=== PATIENT | male | born 1985 | race Caucasian/White ===

== ENCOUNTER 2016-09-18 11:00 | Emergency (ER) | payer MEDICAID ==
[2016-09-18 11:06] VITALS: TEMP 97.7
--- NOTE | 2016-09-18 11:56 | EDPHY ---
H & P Stated Complaint: "twisted left knee" last night. Previous injury to it. Time Seen by Provider: 09/18/16 11:16 HPI/ROS: CHIEF COMPLAINT: Left knee injury HISTORY OF PRESENT ILLNESS: Patient presents to the ED with an acute injury to his left knee. The patient reportedly twisted his knee yesterday while playing a yard game. The patient has a history of a chronic ACL injury which has not been treated with surgery. The patient is scheduled to see a physical therapist this week. The patient presents secondary to his acute injury. The patient denies additional co injury. REVIEW OF SYSTEMS: A comprehensive 10 point review of systems is otherwise negative aside from elements mentioned in the history of present illness. Source: Patient Exam Limitations: No limitations - Personal History Current Tetanus Diphtheria and Acellular Pertussis (TDAP): Yes Tetanus Vaccine Date: 2009 - Medical/Surgical History Hx Asthma: No Hx Chronic Respiratory Disease: No Hx Diabetes: No Hx Cardiac Disease: No Hx Renal Disease: No Hx Cirrhosis: No Hx Alcoholism: No Hx HIV/AIDS: No Hx Splenectomy or Spleen Trauma: No Other PMH: major depressive disorder, anxiety disorder, borderline personality disorder, chronic L knee pain from injury several years ago, osteomylitis - Social History Smoking Status: Current every day smoker - Physical Exam Exam: General Appearance: Alert, no distress Back: No midline T/L/S pain Extremities: Tenderness to palpation along the lateral aspect of the left knee , slight laxity with anterior stress Neurological: A&Ox3, normal motor function, normal sensory exam Constitutional: Initial Vital Signs Temperature (C) 36.5 C 09/18/16 11:02 Heart Rate 91 09/18/16 11:02 Respiratory Rate 16 09/18/16 11:02 Blood Pressure 151/94 H 09/18/16 11:02 O2 Sat (%) 97 09/18/16 11:02 O2 Delivery Mode Room Air Allergies/Adverse Reactions: pregabalin [From Lyrica] Allergy (Intermediate, Verified 06/17/15 07:07) Hives promethazine HCl [From Phenergan] Allergy (Mild, Verified 06/17/15 07:07) Flushing gabapentin Allergy (Verified 06/17/15 07:07) Home Medications: Medication Instructions Recorded Trileptal 04/24/16 LORazepam 09/18/16 Remeron 09/18/16 Medical Decision Making - Diagnostics Imaging: Left knee x-ray: Negative for acute fracture. ED Course/Re-evaluation: The patient presents to emergency department with an acute left knee injury. X- ray demonstrates no evidence of a fracture. The patient does have a chronic knee injury. The patient will be referred to our on-call orthopedic surgeon. The patient is advised to take NSAIDs. Departure - Departure Disposition: Home, Routine, Self-Care Clinical Impression: Knee sprain Condition: Good Instructions: Knee Sprain (ED) Additional Instructions: 1. Take Ibuprofen or Motrin 600 mg by mouth three times a day. 2. Please follow up with the orthopedic surgeon you have been referred to for further evaluation of your chronic knee injury Referrals: Tom Scruggs DO [Primary Care Provider] - As per Instructions Justice Watts MD [Medical Doctor] - As per Instructions
[2016-09-18 12:16] VITALS: BP 149/76; PULSE 88; RESP 14; O2SAT 95
== END 2016-09-18 12:14 | disposition home or self-care (01) ==
DX: S83.92XA Sprain of unspecified site of left knee, initial encounter (principal); F17.200 Nicotine dependence, unspecified, uncomplicated; X58.XXXA Exposure to other specified factors, initial encounter; Y93.89 Activity, other specified

== ENCOUNTER 2017-04-29 10:26 | Emergency (ER) | payer MEDICAID ==
[2017-04-29 10:31] VITALS: BP 110/62; PULSE 88; RESP 18; TEMP 97.7; O2SAT 98
--- NOTE | 2017-04-29 12:07 | EDPHY ---
H & P Time Seen by Provider: 04/29/17 11:20 HPI/ROS: CHIEF COMPLAINT: Vomiting, heroin withdrawal HISTORY OF PRESENT ILLNESS: 31-year-old male presents to the emergency department with multiple episodes of vomiting. His last use of heroin was 2 days ago. He has been using heroin over last 4 months and wants to get off of this drug. Patient has vomited multiple times. He is unable to keep anything down. He has had diarrhea as well. He has diffuse abdominal cramping. No chest pain or difficulty breathing. He has had subjective fevers and sweats. No recent travel. No headache. REVIEW OF SYSTEMS: Constitutional: No fever, no chills. Eyes: No double or blurry vision. ENT: No sore throat. Respiratory: No cough, no shortness of breath. Cardiac: No chest pain. Gastrointestinal: Vomiting, diarrhea. Diffuse abdominal pain Genitourinary: No dysuria. Musculoskeletal: No neck or back pain. Skin: No rashes. Neurological: No headache. Past Medical/Surgical History: Substance abuse Social History: Single Smoking Status: Current every day smoker Physical Exam: General Appearance: Alert, moderate distress. Very anxious. Eyes: Pupils equal and round. Extraocular motions are all intact. ENT: Mouth: Mucous membranes dry. Respiratory: No wheezing, rhonchi, or rales, lungs are clear to auscultation. Cardiovascular: Regular rate and rhythm. Gastrointestinal: Abdomen is soft and nontender, no masses, no rebound or guarding, bowel sounds normal. No CVA tenderness bilaterally. Neurological: Alert and oriented x 3, cranial nerves II through XII grossly intact Skin: Warm and dry, no rashes. Musculoskeletal: Nontender to palpate along the cervical, thoracic or lumbar spine. Neck is supple. Extremities: Full range of motion and no peripheral edema. Psychiatric: Patient is oriented X 3, there is no agitation. Constitutional: Initial Vital Signs Temperature (C) 36.5 C 04/29/17 10:29 Heart Rate 88 04/29/17 10:29 Respiratory Rate 18 04/29/17 10:29 Blood Pressure 110/62 04/29/17 10:29 O2 Sat (%) 98 04/29/17 10:29 O2 Delivery Mode Room Air Allergies/Adverse Reactions: pregabalin [From Lyrica] Allergy (Intermediate, Verified 06/17/15 07:07) Hives promethazine HCl [From Phenergan] Allergy (Mild, Verified 06/17/15 07:07) Flushing gabapentin Allergy (Verified 06/17/15 07:07) Home Medications: Medication Instructions Recorded Trileptal 04/24/16 Remeron 09/18/16 LORazepam [Ativan] 1 mg PO Q6-8PRN PRN #10 tab 04/29/17 Medical Decision Making ED Course/Re-evaluation: Laboratory studies were drawn and laboratory studies were unremarkable. Patient received IV normal saline as well as 2 mg of IV Ativan and Zofran. He was starting to feel better. He did not have any recurring vomiting in the emergency department. The patient was instructed to have close follow-up with primary care provider. He was also given information regarding the addiction recovery Center. Patient does not have an acute abdomen. I do not think CT imaging is indicated. Differential Diagnosis: Including but not limited to substance abuse, withdrawal, dehydration, electrolyte abnormality - Data Points Laboratory Results: Laboratory Results 04/29/17 12:10 04/29/17 12:10 04/29/17 04/29/17 12:10 12:10 WBC 9.14 10^3/uL 10^3/uL (3.80-9.50) RBC 4.39 10^6/uL L 10^6/uL (4.40-6.38) Hgb 14.2 g/dL g/dL (13.7-17.5) Hct 38.2 % L % (40.0-51.0) MCV 87.0 fL fL (81.5-99.8) MCH 32.3 pg pg (27.9-34.1) MCHC 37.2 g/dL H g/dL (32.4-36.7) RDW 12.4 % % (11.5-15.2) Plt Count 181 10^3/uL 10^3/uL (150-400) MPV 10.2 fL fL (8.7-11.7) Neut % (Auto) 78.1 % H % (39.3-74.2) Lymph % (Auto) 12.8 % L % (15.0-45.0) [place] % (Auto) 8.0 % % (4.5-13.0) Eos % (Auto) 0.3 % L % (0.6-7.6) Baso % (Auto) 0.4 % % (0.3-1.7) Nucleat RBC Rel Count 0.0 % % (0.0-0.2) Absolute Neuts (auto) 7.13 10^3/uL H 10^3/uL (1.70-6.50) Absolute Lymphs (auto) 1.17 10^3/uL 10^3/uL (1.00-3.00) Absolute Monos (auto) 0.73 10^3/uL 10^3/uL (0.30-0.80) Absolute Eos (auto) 0.03 10^3/uL 10^3/uL (0.03-0.40) Absolute Basos (auto) 0.04 10^3/uL 10^3/uL (0.02-0.10) Absolute Nucleated RBC 0.00 10^3/uL 10^3/uL (0-0.01) Immature Gran % 0.4 % % (0.0-1.1) Immature Gran # 0.04 10^3/uL 10^3/uL (0.00-0.10) Sodium 142 mEq/L mEq/L (134-144) Potassium 3.7 mEq/L mEq/L (3.5-5.2) Chloride 106 mEq/L mEq/L (97-110) Carbon Dioxide 24 mEq/l mEq/l (22-31) Anion Gap 12 mEq/L mEq/L (8-16) BUN 6 mg/dL L mg/dL (7-23) Creatinine 0.6 mg/dL L mg/dL (0.7-1.3) Estimated GFR > 60 Glucose 115 mg/dL H mg/dL (70-100) Calcium 9.2 mg/dL mg/dL (8.5-10.4) Medications Given: Discontinued Medications Sodium Chloride (Ns) 1,000 mls @ 0 mls/hr IV ONCE ONE PRN Reason: Wide Open Stop: 04/29/17 12:10 Last Admin: 04/29/17 12:17 Dose: 1,000 mls Lorazepam (Ativan Injection) 1 mg IVP EDNOW ONE Stop: 04/29/17 12:10 Last Admin: 04/29/17 12:18 Dose: 1 mg Lorazepam (Ativan Injection) 1 mg IVP EDNOW ONE Stop: 04/29/17 12:47 Last Admin: 04/29/17 12:51 Dose: 1 mg Ondansetron HCl (Zofran) 4 mg IVP EDNOW ONE Stop: 04/29/17 12:10 Last Admin: 04/29/17 12:18 Dose: 4 mg Departure - Departure Disposition: Home, Routine, Self-Care Clinical Impression: Substance abuse, Withdrawal from opioids Condition: Good Instructions: Acute Nausea and Vomiting (ED) Additional Instructions: Clear liquids and slowly advance diet as tolerated. Ativan as needed for symptoms of withdrawal. Referrals: Tom Scruggs DO [Primary Care Provider] - As per Instructions [facility] [Outside] - As per Instructions Prescriptions: LORazepam [Ativan] 1 mg PO Q6-8PRN PRN #10 tab PRN Reason: P.r.n. anxiety
[2017-04-29] MEDS ORDERED: NS 1,000 ML IV ONE (12:09)
[2017-04-29] MEDS ORDERED: LORazepam 2 MG/ML INJ IVP ONE ×3 (12:09→13:48)
[2017-04-29] MEDS ORDERED: ONDANSETRON 4 MG/2 ML VIAL IVP ONE (12:09)
[2017-04-29 12:19] LABS: % IMMATURE GRANULYOCYTES 0.4 % (0.0-1.1); ABSOLUTE IMMATURE GRANULOCYTES 0.04 10^3/uL (0.00-0.10); ADD DIFF? NO; ADD MORPH? NO; ADD SCAN? NO; ATYPICAL LYMPHOCYTE FLAG 0 (0-99); FRAGMENT RBC FLAG 0 (0-99); HEMATOCRIT 38.2 % (40.0-51.0); HEMOGLOBIN 14.2 g/dL (13.7-17.5); LEFT SHIFT FLG 0 (0-99); LIPEMIA HEMOLYSIS FLAG 90 (0-99); MEAN CELL HEMOGLOBIN 32.3 pg (27.9-34.1); MEAN CELL HEMOGLOBIN CONCENTR. 37.2 g/dL (32.4-36.7); MEAN PLATELET VOLUME 10.2 fL (8.7-11.7); PLATELET CLUMPS FLAG 40 (0-99); PLATELET COUNT 181 10^3/uL (150-400); RED BLOOD CELL COUNT 4.39 10^6/uL (4.40-6.38); RED CELL DISTRIBUTION WIDTH 12.4 % (11.5-15.2)
[2017-04-29 12:58] LABS: ANION GAP 12 mEq/L (8-16); CALCIUM 9.2 mg/dL (8.5-10.4); CARBON DIOXIDE 24 mEq/l (22-31); CHLORIDE 106 mEq/L (97-110); CREATININE 0.6 mg/dL (0.7-1.3); GLOMERULAR FILTRATION RATE > 60; GLUCOSE 115 mg/dL (70-100); POTASSIUM 3.7 mEq/L (3.5-5.2); SODIUM 142 mEq/L (134-144)
--- NOTE | 2017-04-29 14:20 | ASDISCHSUM ---
Discharge Information Plan Status:Substance Abuse Referrals Medically Cleared to Leave: Discharge Date:04/29/2017 02:01 PM CM D/C Disposition:Home, Routine, Self-Care ADT D/C Disposition:Home, Routine, Self-Care Projected Discharge Date:04/29/2017 02:01 PM Transportation at D/C:None or Unknown Discharge Delay Reason: Follow-Up Date:04/29/2017 02:01 PM Discharge Slot: Final Diagnosis: Placement Information Patient Contact Information Contact Name:MIKIE Relationship:Mother Address:[address] [place] [address] Work Phone: City:[place] Alternate Phone: State/Zip Code:[place] [address] Email: Financial Information Financial Class: Primary Plan Desc:[employer]ICA[employer] 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 Emergency dept visits in Answers: 1 last 6 months Score: 1 Date Signed: 04/29/2017 02:19 PM Electronically Signed By:Felicia Land RN Intervention Information
[2017-05-01] MEDS ORDERED: DIAZEPAM 5 MG TAB ONE ×2 (13:58→14:09)
== END 2017-04-29 14:01 | disposition home or self-care (01) ==
DX: F11.23 Opioid dependence with withdrawal (principal); F17.200 Nicotine dependence, unspecified, uncomplicated
CPT/HCPCS: 96374; J2060; J2405

== ENCOUNTER 2017-05-01 00:11 | Emergency (ER) | payer MEDICAID ==
[2017-05-01 01:11] LABS: % IMMATURE GRANULYOCYTES 0.5 % (0.0-1.1); ABSOLUTE IMMATURE GRANULOCYTES 0.05 10^3/uL (0.00-0.10); ADD DIFF? NO; ADD MORPH? NO; ADD SCAN? NO; ATYPICAL LYMPHOCYTE FLAG 10 (0-99); FRAGMENT RBC FLAG 0 (0-99); HEMATOCRIT 36.2 % (40.0-51.0); HEMOGLOBIN 13.1 g/dL (13.7-17.5); LEFT SHIFT FLG 0 (0-99); LIPEMIA HEMOLYSIS FLAG 90 (0-99); MEAN CELL HEMOGLOBIN 31.5 pg (27.9-34.1); MEAN CELL HEMOGLOBIN CONCENTR. 36.2 g/dL (32.4-36.7); MEAN PLATELET VOLUME 10.1 fL (8.7-11.7); PLATELET CLUMPS FLAG 0 (0-99); PLATELET COUNT 213 10^3/uL (150-400); RED BLOOD CELL COUNT 4.16 10^6/uL (4.40-6.38); RED CELL DISTRIBUTION WIDTH 12.6 % (11.5-15.2)
[2017-05-01 01:23] LABS: ANION GAP 15 mEq/L (8-16); CALCIUM 8.5 mg/dL (8.5-10.4); CARBON DIOXIDE 23 mEq/l (22-31); CHLORIDE 109 mEq/L (97-110); CREATININE 0.6 mg/dL (0.7-1.3); ETHANOL SERUM 106 mg/dL (0-10); GLOMERULAR FILTRATION RATE > 60; GLUCOSE 86 mg/dL (70-100); POTASSIUM 3.5 mEq/L (3.5-5.2); SODIUM 147 mEq/L (134-144)
[2017-05-01] MEDS ORDERED: LORazepam 1 MG TAB PO ONE (01:24)
--- NOTE | 2017-05-01 01:30 | EDPHY ---
H & P Stated Complaint: SI-here earlier today Source: Patient Exam Limitations: No limitations - Personal History Current Tetanus Diphtheria and Acellular Pertussis (TDAP): Yes Tetanus Vaccine Date: 2009 - Medical/Surgical History Hx Asthma: No Hx Chronic Respiratory Disease: No Hx Diabetes: No Hx Cardiac Disease: No Hx Renal Disease: No Hx Cirrhosis: No Hx Alcoholism: No Hx HIV/AIDS: No Hx Splenectomy or Spleen Trauma: No Other PMH: major depressive disorder, anxiety disorder, borderline personality disorder, chronic L knee pain from injury several years ago, osteomylitis - Social History Smoking Status: Current every day smoker Time Seen by Provider: 05/01/17 01:12 HPI/ROS: HPI The patient presents with suicidal ideation in the setting of opiate withdrawal. He has had symptoms for the last several days after stopping using heroin 4 days ago. He says he is exhausted unable to eat, sleep, is at the end of his rope. And because of all this, he is feeling suicidal. 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 He thinks all these things are contributing to his symptoms. He went to the crisis [facility] and was placed on an M1 hold. He was seen in the emergency department 2 days ago for opiate withdrawal and given Ativan with improvement in his symptoms.. REVIEW OF SYSTEMS Constitutional: No fever, no chills. Eyes: No discharge. ENT: No sore throat. Cardiovascular: No chest pain, no palpitations. Respiratory: No cough, no shortness of breath. Gastrointestinal: No abdominal pain, no vomiting. Genitourinary: No hematuria. Musculoskeletal: No back pain. Skin: No rashes. Neurological: No headache. PMHx: Mood disorder Soc Hx: Housed, used alcohol recently, family lives locally PHYSICAL General Appearance: Alert, anxious Eyes: Pupils equal and round no pallor or injection ENT, Mouth: Mucous membranes moist Respiratory: There are no retractions, lungs are clear to auscultation Cardiovascular: Regular rate and rhythm Gastrointestinal: Abdomen is soft and non-tender, no masses, bowel sounds normal Neurological: A&O, moves all extremities Skin: Warm and dry, no rashes Musculoskeletal: Neck is supple non tender Extremities: symmetrical, full range of motion Psychiatric: Patient is oriented X 3, there is no agitation (Riguzzi,Antonia) Constitutional: Initial Vital Signs Temperature (C) 36.6 C 05/01/17 00:15 Heart Rate 74 05/01/17 00:15 Respiratory Rate 16 05/01/17 00:15 Blood Pressure 123/77 H 05/01/17 00:15 O2 Sat (%) 96 05/01/17 00:15 O2 Delivery Mode Room Air Allergies/Adverse Reactions: pregabalin [From Lyrica] Allergy (Intermediate, Verified 05/01/17 00:15) Hives promethazine HCl [From Phenergan] Allergy (Mild, Verified 05/01/17 00:15) Flushing gabapentin Allergy (Verified 05/01/17 00:15) Home Medications: Medication Instructions Recorded Trileptal 04/24/16 Remeron 09/18/16 LORazepam [Ativan] 1 mg PO Q6-8PRN PRN #10 tab 04/29/17 Medical Decision Making Differential Diagnosis: 31-year-old male, brought in by ambulance on mental health hold from the crisis Center for suicidal ideation in the setting of opiate withdrawal. Differential diagnosis includes depression with suicidal ideation, symptomatic opiate withdrawal, less likely benzodiazepine withdrawal. In the emergency department, patient's labs were checked and were relatively unremarkable. He was deemed medically clear. Psychiatric Services are looking for placement for him. He had some difficulties with restlessness and insomnia , anxiety throughout the night. He was medicated with Ativan 2 mg, Zyprexa, mirtazapine. There is some concern for benzodiazepine seeking behavior, he has a prior history of benzodiazepine addiction so I am being cautious with the use of this medication. At 7:00 a.m., I anticipate the case will be signed out to the oncoming provider Dr. Montelongo pending placement. (Antonia Mccall) I assumed care of this patient at 7:[address] Mccall. Throughout the day he has had persistent symptoms of opiate withdrawal. With restless legs, abdominal pain, some anxiety, general dysphoria. He has received benzodiazepines, Valium and clonidine for the symptoms. At 3:30 p.m. he is much more comfortable, not agitated and resting. When questioned throughout the day he continues to expressed suicidal ideation, primarily related to his drug abuse. His care will be transferred to Dr. Shaheed Randhawa at 4:00 p.m.. Placement pending. (Jenna Montelongo) Other Provider: 5:20 p.m. patient accepted to [facility] by Dr. Cars. Transfer paperwork completed. (Shaheed Randhawa) - Data Points Laboratory Results: Laboratory Results 05/01/17 00:55 05/01/17 00:55 Medications Given: Discontinued Medications Acetaminophen (Tylenol) 1,000 mg PO EDNOW ONE Stop: 05/01/17 02:33 Last Admin: 05/01/17 02:53 Dose: 1,000 mg Chlordiazepoxide HCl (Librium) 25 mg PO EDNOW ONE Stop: 05/01/17 06:48 Last Admin: 05/01/17 06:49 Dose: 25 mg Clonidine (Catapres) 0.2 mg PO EDNOW ONE Stop: 05/01/17 01:26 Last Admin: 05/01/17 01:39 Dose: 0.2 mg Clonidine (Catapres) 0.2 mg PO EDNOW ONE Stop: 05/01/17 10:06 Last Admin: 05/01/17 10:13 Dose: 0.2 mg Diazepam (Valium) 10 mg PO EDNOW ONE Stop: 05/01/17 08:33 Last Admin: 05/01/17 08:36 Dose: 10 mg Diazepam (Valium) 5 mg PO EDNOW ONE Stop: 05/01/17 12:54 Last Admin: 05/01/17 13:59 Dose: 5 mg Diazepam (Valium) 5 mg PO EDNOW ONE Stop: 05/01/17 14:09 Last Admin: 05/01/17 14:10 Dose: 5 mg Ibuprofen (Motrin) 600 mg PO EDNOW ONE Stop: 05/01/17 08:03 Last Admin: 05/01/17 08:05 Dose: 600 mg Lorazepam (Ativan) 2 mg PO EDNOW ONE Stop: 05/01/17 01:25 Last Admin: 05/01/17 01:39 Dose: 2 mg Mirtazapine (Remeron) 15 mg PO EDNOW ONE Stop: 05/01/17 02:33 Last Admin: 05/01/17 02:53 Dose: 15 mg Olanzapine (Olanzapine) 10 mg PO ONCE ONE Stop: 05/01/17 02:22 Last Admin: 05/01/17 02:27 Dose: Not Given Olanzapine (Olanzapine) 10 mg PO ONCE ONE Stop: 05/01/17 04:48 Last Admin: 05/01/17 04:55 Dose: 10 mg Ondansetron HCl (Zofran Odt) 4 mg PO EDNOW ONE Stop: 05/01/17 08:03 Last Admin: 05/01/17 08:05 Dose: 4 mg Departure - Departure Disposition: Other Psych, Not Jose Armando Clinical Impression: Opiate withdrawal, Suicidal ideation Condition: Fair Referrals: Tom Scruggs DO [Primary Care Provider] - As per Instructions
[2017-05-01] MEDS ORDERED: LORazepam 1 MG TAB ONE (01:42)
[2017-05-01] MEDS ORDERED: OLANZapine 5 MG TAB PO ONE ×2 (02:21→04:47)
[2017-05-01] MEDS ORDERED: MIRTAZAPINE 15 MG TAB PO ONE (02:32)
[2017-05-01] MEDS ORDERED: ACETAMINOPHEN 500 MG TAB PO ONE (02:32)
[2017-05-01] MEDS ORDERED: chlordiazePOXIDE 25 MG CAP PO ONE (06:47)
[2017-05-01 07:59] VITALS: RESP 14; O2SAT 96
[2017-05-01] MEDS ORDERED: IBUPROFEN 600 MG TAB PO ONE ×3 (08:02→18:19)
[2017-05-01] MEDS ORDERED: ONDANSETRON DISINTEGRATING 4 MG TAB PO ONE (08:02)
[2017-05-01] MEDS ORDERED: DIAZEPAM 5 MG TAB PO ONE ×4 (08:32→18:11)
[2017-05-01 18:35] VITALS: BP 149/87; PULSE 60; TEMP 98.1
== END 2017-05-01 20:18 ==
LOC: EDUNIT# → EEVIPCON 00:11
DX: R45.851 Suicidal ideations (principal); F11.23 Opioid dependence with withdrawal; F17.200 Nicotine dependence, unspecified, uncomplicated
CPT/HCPCS: 80305; G0480

== ENCOUNTER 2017-06-14 07:41 | Emergency (ER) | payer MEDICAID ==
[2017-06-14] MEDS ORDERED: TERBUTALINE SULFATE 5 MG TAB PO ONE (08:07)
[2017-06-14] MEDS ORDERED: HYDROmorphONE/DILAUDID 1 MG/ML INJ IVP ONE (08:10)
[2017-06-14] MEDS ORDERED: NS 1,000 ML IV ONE (08:10)
[2017-06-14] MEDS ORDERED: ONDANSETRON 4 MG/2 ML VIAL IVP ONE (08:10)
--- NOTE | 2017-06-14 08:14 | EDPHY ---
H & P Stated Complaint: Priapism Time Seen by Provider: 06/14/17 07:56 HPI/ROS: CHIEF COMPLAINT: Priapism HISTORY OF PRESENT ILLNESS: Patient is a 31-year-old man with history of depression on Remeron, Lamictal and Ativan who presents emergency department complaining of an erection since 3:00 a.m.. He states that it is fluctuated to some degree but is painful. He has had these before. Sometimes it resolves with Benadryl or irrigation but another time he had to go to the OR and have a "stent "placed. He states that that was 2 years ago in [place]. He had been on Zyprexa at the time but has since switched to his other medications. He is not followed up with a urologist since then. He denies any trauma. No bleeding. He has not tried to urinate. No fever. No abdominal pain or testicle pain. No illicit drug use. REVIEW OF SYSTEMS: Constitutional: denies: chills, fever, recent illness, recent injury EENTM: denies: blurred vision, double vision, nose congestion Respiratory: denies: cough, shortness of breath Cardiac: denies: chest pain, irregular heart rate, lightheadedness, palpitations Gastrointestinal/Abdominal: denies: abdominal pain, diarrhea, nausea, vomiting, blood streaked stools Genitourinary: See HPI Musculoskeletal: denies: joint pain, muscle pain Skin: denies: lesions, rash, jaundice, bruising Neurological: denies: headache, numbness, paresthesia, tingling, dizziness, weakness Hematologic/Lymphatic: denies: blood clots, easy bleeding, easy bruising Immunologic/allergic: denies: HIV/AIDS, transplant EXAM: GENERAL: Well-appearing, well-nourished and in no acute distress. HEAD: Atraumatic, normocephalic. EYES: Pupils equal round and reactive to light, extraocular movements intact, sclera anicteric, conjunctiva are normal. ENT: TMs normal, nares patent, oropharynx clear without exudates. Moist mucous membranes. NECK: Normal range of motion, supple without lymphadenopathy or JVD. LUNGS: Breath sounds clear to auscultation bilaterally and equal. No wheezes rales or rhonchi. HEART: Regular rate and rhythm without murmurs, rubs or gallops. ABDOMEN: Soft, nontender, normoactive bowel sounds. No guarding, no rebound. No masses appreciated. : Erect penis, no erythema. Nontender. No discharge. Is previous scar on right glands BACK: No CVA tenderness, no spinal tenderness, step-offs or deformities EXTREMITIES: Normal range of motion, no pitting or edema. No clubbing or cyanosis. NEUROLOGICAL: Cranial nerves II through XII grossly intact. Normal speech, normal gait. 5/5 strength, normal movement in all extremities, normal sensation PSYCH: Normal mood, normal affect. SKIN: Warm, dry, normal turgor, no visible rashes or lesions. Source: Patient, Family Exam Limitations: No limitations - Personal History Current Tetanus Diphtheria and Acellular Pertussis (TDAP): Yes Tetanus Vaccine Date: 2009 - Medical/Surgical History Hx Asthma: No Hx Chronic Respiratory Disease: No Hx Diabetes: No Hx Cardiac Disease: No Hx Renal Disease: No Hx Cirrhosis: No Hx Alcoholism: No Hx HIV/AIDS: No Hx Splenectomy or Spleen Trauma: No Other PMH: major depressive disorder, anxiety disorder, borderline personality disorder, chronic L knee pain from injury several years ago, osteomylitis. Priapism. - Family History Significant Family History: No pertinent family hx - Social History Smoking Status: Current every day smoker Alcohol Use: Sober Drug Use: None Constitutional: Initial Vital Signs Temperature (C) 36.6 C 06/14/17 07:42 Heart Rate 80 06/14/17 07:42 Respiratory Rate 18 06/14/17 07:42 Blood Pressure 114/63 06/14/17 07:42 O2 Sat (%) 100 06/14/17 07:42 O2 Delivery Mode Room Air Allergies/Adverse Reactions: pregabalin [From Lyrica] Allergy (Intermediate, Verified 05/01/17 00:15) Hives promethazine HCl [From Phenergan] Allergy (Mild, Verified 05/01/17 00:15) Flushing gabapentin Allergy (Verified 05/01/17 00:15) morphine Allergy (Verified 05/01/17 20:17) Home Medications: Medication Instructions Recorded Trileptal 04/24/16 Remeron 09/18/16 LORazepam [Ativan] 1 mg PO Q6-8PRN PRN #10 tab 04/29/17 Medical Decision Making ED Course/Re-evaluation: 9:00 a.m. I entered the room to attempt to inject with phenylephrine however the patient would like to see if the terbutaline will work 1st. He just received about 10 min ago. 9:30 a.m. the patient's priapism has detumesced with terbutaline only. He is concerned about the stent on his penis and states that over the last few days he has been more sexually active and seems to be having delayed detumscence. I will consult Urology Dr. Barrera Alexander. 10:00 a.m. I discussed the case with Dr. Sears. He will see the patient in clinic. He states that the patient likely does not have a stent but a shunt that was used to drain previous priapism episodes. No remaining foreign body or plastic stent. The patient is relieved to hear this. The patient's penis has completely normalized. We also discussed follow up with his psychiatrist to re-evaluate his medications that may be causing priapism. He has an appoint with his psychiatrist tomorrow. He is happy with this plan and is eager to go home. Differential Diagnosis: Partial list of the Differential diagnosis considered include but were not limited to; priapism, trauma and although unlikely based on the history and physical exam, I also considered infection, obstruction. I discussed these differential diagnoses and the plan with the patient as well as the usual and expected course. The patient understands that the diagnosis is provisional and that in medicine we are not always correct and that further workup is often warranted. Usual and customary warnings were given. All of the patient's questions were answered. The patient was instructed to return to the emergency department should the symptoms at all worsen or return, otherwise to followup with the physician as we discussed. - Data Points Laboratory Results: Laboratory Results 06/14/17 08:10 06/14/17 08:10 06/14/17 06/14/17 06/14/17 08:10 08:10 08:10 WBC 3.95 10^3/uL 10^3/uL (3.80-9.50) RBC 4.55 10^6/uL 10^6/uL (4.40-6.38) Hgb 14.3 g/dL g/dL (13.7-17.5) Hct 40.3 % % (40.0-51.0) MCV 88.6 fL fL (81.5-99.8) MCH 31.4 pg pg (27.9-34.1) MCHC 35.5 g/dL g/dL (32.4-36.7) RDW 12.6 % % (11.5-15.2) Plt Count 134 10^3/uL L 10^3/uL (150-400) MPV 10.1 fL fL (8.7-11.7) Neut % (Auto) 48.0 % % (39.3-74.2) Lymph % (Auto) 40.8 % % (15.0-45.0) [place] % (Auto) 7.8 % % (4.5-13.0) Eos % (Auto) 2.3 % % (0.6-7.6) Baso % (Auto) 0.8 % % (0.3-1.7) Nucleat RBC Rel Count 0.0 % % (0.0-0.2) Absolute Neuts (auto) 1.90 10^3/uL 10^3/uL (1.70-6.50) Absolute Lymphs (auto) 1.61 10^3/uL 10^3/uL (1.00-3.00) Absolute Monos (auto) 0.31 10^3/uL 10^3/uL (0.30-0.80) Absolute Eos (auto) 0.09 10^3/uL 10^3/uL (0.03-0.40) Absolute Basos (auto) 0.03 10^3/uL 10^3/uL (0.02-0.10) Absolute Nucleated RBC 0.00 10^3/uL 10^3/uL (0-0.01) Immature Gran % 0.3 % % (0.0-1.1) Immature Gran # 0.01 10^3/uL 10^3/uL (0.00-0.10) PT 13.4 SEC SEC (12.0-15.0) INR 1.00 (0.83-1.16) APTT 28.8 SEC SEC (23.0-38.0) Sodium 144 mEq/L mEq/L (134-144) Potassium 3.9 mEq/L mEq/L (3.5-5.2) Chloride 108 mEq/L mEq/L (97-110) Carbon Dioxide 25 mEq/l mEq/l (22-31) Anion Gap 11 mEq/L mEq/L (8-16) BUN 17 mg/dL mg/dL (7-23) Creatinine 0.7 mg/dL mg/dL (0.7-1.3) Estimated GFR > 60 Glucose 95 mg/dL mg/dL (70-100) Calcium 9.4 mg/dL mg/dL (8.5-10.4) Medications Given: Discontinued Medications Hydromorphone HCl (Dilaudid) 1 mg IVP EDNOW ONE Stop: 06/14/17 08:11 Last Admin: 06/14/17 08:24 Dose: 1 mg Sodium Chloride (Ns) 1,000 mls @ 0 mls/hr IV EDNOW ONE; Wide Open PRN Reason: Protocol Stop: 06/14/17 08:11 Last Admin: 06/14/17 08:23 Dose: 1,000 mls Ondansetron HCl (Zofran) 4 mg IVP EDNOW ONE Stop: 06/14/17 08:11 Last Admin: 06/14/17 08:24 Dose: 4 mg Terbutaline Sulfate (Brethine) 5 mg PO ONCE ONE Stop: 06/14/17 08:08 Last Admin: 06/14/17 08:54 Dose: 5 mg Departure - Departure Disposition: Home, Routine, Self-Care Clinical Impression: Priapism Condition: Fair Instructions: Priapism (ED) Referrals: NONE *PRIMARY CARE P,. [Primary Care Provider] - As per Instructions Barrera Alexander MD [Medical Doctor] - 2-3 days, call for appt.
[2017-06-14 08:20] LABS: PLATELET COUNT 134 10^3/uL (150-400)
[2017-06-14 08:41] LABS: PROTIME(PATIENT) 13.4 SEC (12.0-15.0)
[2017-06-14] MEDS ORDERED: PHENYLEPHRINE HCL 100 MCG/ML SYR IVP ONE (08:46)
[2017-06-14 10:13] VITALS: BP 116/69; PULSE 66; RESP 16; TEMP 98.6; O2SAT 99
== END 2017-06-14 10:13 | disposition home or self-care (01) ==
DX: N48.30 Priapism, unspecified (principal); F17.200 Nicotine dependence, unspecified, uncomplicated; E86.9 Volume depletion, unspecified
CPT/HCPCS: 96374; J1170; J2370; J2405

== ENCOUNTER 2017-07-25 10:33 | Emergency (ER) | payer MEDICAID ==
[2017-07-25 10:45] VITALS: RESP 16; TEMP 98.1
[2017-07-25] MEDS ORDERED: MECLIZINE HCL 25 MG TAB PO ONE (12:01)
[2017-07-25] MEDS ORDERED: ONDANSETRON 4 MG/2 ML VIAL IVP ONE (12:01)
[2017-07-25] MEDS ORDERED: NS 1,000 ML IV ONE (12:01)
--- NOTE | 2017-07-25 12:05 | EDPHY ---
H & P Time Seen by Provider: 07/25/17 11:11 HPI/ROS: CHIEF COMPLAINT: Room spinning sensation HISTORY OF PRESENT ILLNESS: 31-year-old male with a history of polysubstance abuse presents with a room spinning sensation. Onset of vertigo to 3 days ago, intermittent since then. The vertigo worsens with head movement and sometimes completely resolves. Associated with vomiting. No associated headache. He currently drinks 1 pt of vodka daily. 3-4 weeks ago, he stopped Suboxone and Ativan. REVIEW OF SYSTEMS: Constitutional: No fever, no chills Eyes: No visual changes ENT: No sore throat Respiratory: No cough, no shortness of breath Cardiac: No chest pain Gastrointestinal: no abdominal pain Genitourinary: No hematuria, no dysuria Musculoskeletal: No leg pain or swelling Skin: No rash Neurological: No headache, no weakness Psychiatric: depression Past Medical/Surgical History: Alcoholism Polysubstance abuse Social History: IVDA Smoking Status: Current every day smoker Physical Exam: General Appearance: Alert, anxious Eyes: Pupils equal and round, no conjunctival pallor or injection, nystagmus, fast component to the right ENT, Mouth: Mucous membranes moist Neck: Normal inspection Respiratory: Lungs are clear to auscultation Cardiovascular: Regular rate and rhythm Gastrointestinal: Abdomen is soft and nontender Neurological: Alert, oriented x3, cranial nerves II through XII intact, motor 5 /5, sensory intact to light touch, normal gait Skin: Warm and dry, no rash Extremities: Nontender, no pedal edema Psychiatric: Mood and affect normal Constitutional: Initial Vital Signs Temperature (C) 36.7 C 07/25/17 10:43 Heart Rate 99 07/25/17 10:43 Respiratory Rate 16 07/25/17 10:43 Blood Pressure 139/97 H 07/25/17 10:43 O2 Sat (%) 96 07/25/17 10:43 O2 Delivery Mode Room Air Allergies/Adverse Reactions: pregabalin [From Lyrica] Allergy (Intermediate, Verified 07/25/17 10:43) Hives promethazine HCl [From Phenergan] Allergy (Mild, Verified 07/25/17 10:43) Flushing gabapentin Allergy (Verified 07/25/17 10:43) morphine Allergy (Verified 07/25/17 10:43) Home Medications: Medication Instructions Recorded Trileptal 04/24/16 Remeron 09/18/16 Meclizine HCl [Meclizine HCl 25 mg 25 mg PO TID PRN #15 tab 07/25/17 (RX,OTC)] Ondansetron Odt [Zofran Odt 4 mg 4 mg PO Q4 PRN #6 tab 07/25/17 (*)] Medical Decision Making ED Course/Re-evaluation: This patient presents with vertigo. Clinical presentation consistent with peripheral etiology. Neurologic exam is normal and I do not suspect a central etiology for vertigo. IV normal saline 1 L and Zofran 4 mg IV given, followed by meclizine 25 mg orally. 13 20: Feels much better and is ready to go home. Will follow up with ENT if vertigo persists. Differential Diagnosis: Differential diagnosis includes TIA, stroke, intracranial hemorrhage, tumor, electrolyte abnormality and acute labyrinthitis. - Data Points Laboratory Results: Laboratory Results 07/25/17 12:12 07/25/17 12:12 Medications Given: Discontinued Medications Sodium Chloride (Ns) 1,000 mls @ 0 mls/hr IV ONCE ONE; Wide Open PRN Reason: Protocol Stop: 07/25/17 12:02 Last Admin: 07/25/17 12:16 Dose: 1,000 mls Meclizine HCl (Meclizine Hcl) 25 mg PO EDNOW ONE Stop: 07/25/17 12:02 Last Admin: 07/25/17 12:15 Dose: 25 mg Ondansetron HCl (Zofran) 4 mg IVP EDNOW ONE Stop: 07/25/17 12:02 Last Admin: 07/25/17 12:15 Dose: 4 mg Departure - Departure Disposition: Home, Routine, Self-Care Clinical Impression: Vertigo Condition: Good Instructions: Vertigo (ED) Additional Instructions: Take Antivert 1 tablet every 6 hr as needed for vertigo. You can buy Antivert over the counter. Referrals: Tom Cordova MD [Medical Doctor] - 2-3 days, if not improved Prescriptions: Meclizine HCl [Meclizine HCl 25 mg (RX,OTC)] 25 mg PO TID PRN #15 tab PRN Reason: Dizziness Ondansetron Odt [Zofran Odt 4 mg (*)] 4 mg PO Q4 PRN #6 tab PRN Reason: Nausea
[2017-07-25 12:30] LABS: PLATELET COUNT 183 10^3/uL (150-400)
[2017-07-25 12:53] VITALS: BP 147/84; PULSE 75; O2SAT 97
== END 2017-07-25 13:34 | disposition home or self-care (01) ==
DX: R42 Dizziness and giddiness (principal); E86.9 Volume depletion, unspecified; F17.200 Nicotine dependence, unspecified, uncomplicated
CPT/HCPCS: 96374; J2405

== ENCOUNTER 2017-08-02 15:28 | Emergency (ER) | payer MEDICAID ==
[2017-08-02 15:33] VITALS: TEMP 97.9
[2017-08-02] MEDS ORDERED: NS 1,000 ML IV ONE (16:04)
--- NOTE | 2017-08-02 16:07 | EDPHY ---
H & P Time Seen by Provider: 08/02/17 15:52 HPI/ROS: CHIEF COMPLAINT: Liver and kidney pain HISTORY OF PRESENT ILLNESS: 32-year-old male with a history of alcoholism and polysubstance abuse presents with liver and kidney pain. Ongoing right upper quadrant pain, associated with low back pain, he is especially concerned of liver and kidneys shutting down because of alcoholism. He stopped using drugs recently but has resorted to drinking excessive alcohol. Since that time, he has had increasing right upper quadrant pain. He also has significant anxiety. Requesting detox today. He asks me what he needs to say to be admitted to any facility. REVIEW OF SYSTEMS: Constitutional: No fever, no chills Eyes: No visual changes ENT: No sore throat Respiratory: No cough, no shortness of breath Cardiac: No chest pain Gastrointestinal: no vomiting Genitourinary: no dysuria Musculoskeletal: No leg pain or swelling Skin: No rash Neurological: No headache, no weakness Psychiatric: Anxiety and depression Past Medical/Surgical History: Alcoholism Polysubstance abuse Anxiety Social History: Single Recent alcohol use Smoking Status: Current every day smoker Physical Exam: General Appearance: Alert, well-appearing, smells of alcohol Eyes: Pupils equal and round, no conjunctival pallor or injection ENT, Mouth: Mucous membranes moist Neck: Normal inspection Respiratory: Lungs are clear to auscultation Cardiovascular: Regular rate and rhythm Gastrointestinal: Abdomen is soft, right upper quadrant tenderness Neurological: A&O, nonfocal, normal gait Skin: Warm and dry, no rash Extremities: Normal inspection, no swelling Psychiatric: Fluctuating affect, volatile at times, tearful at others Constitutional: Initial Vital Signs Temperature (C) 36.6 C 08/02/17 15:29 Heart Rate 99 08/02/17 15:29 Respiratory Rate 16 08/02/17 15:29 Blood Pressure 152/92 H 08/02/17 15:29 O2 Sat (%) 96 08/02/17 15:29 O2 Delivery Mode Room Air Allergies/Adverse Reactions: pregabalin [From Lyrica] Allergy (Intermediate, Verified 07/25/17 10:43) Hives promethazine HCl [From Phenergan] Allergy (Mild, Verified 07/25/17 10:43) Flushing gabapentin Allergy (Verified 07/25/17 10:43) morphine Allergy (Verified 02/07/18 10:43) Home Medications: Medication Instructions Recorded Trileptal 04/24/16 Remeron 09/18/16 Meclizine HCl [Meclizine HCl 25 mg 25 mg PO TID PRN #15 tab 07/25/17 (RX,OTC)] Ondansetron Odt [Zofran Odt 4 mg 4 mg PO Q4 PRN #6 tab 07/25/17 (*)] Medical Decision Making ED Course/Re-evaluation: This patient presents with anxiety and alcohol intoxication. Abdominal exam is benign and I do not suspect an intra-abdominal acute process. Laboratory studies are relatively unremarkable and reveal minimally elevated LFTs. Ethanol level 379. He is clinically sober with this alcohol level. Speech is normal and he is able to walk with a steady gait. Mental health saw the patient and gave him resources for alcohol detox. He would like to go to the [facility]. He was sent to the [facility] with a prepack of Librium. Differential Diagnosis: Differential diagnosis includes though it is not limited to appendicitis, cholecystitis, diverticulitis, pyelonephritis, bowel perforation, small bowel obstruction. - Data Points Laboratory Results: Laboratory Results 08/02/17 15:55 08/02/17 15:55 08/02/17 08/02/17 15:55 15:55 WBC 6.09 10^3/uL 10^3/uL (3.80-9.50) RBC 5.20 10^6/uL 10^6/uL (4.40-6.38) Hgb 16.4 g/dL g/dL (13.7-17.5) Hct 45.2 % % (40.0-51.0) MCV 86.9 fL fL (81.5-99.8) MCH 31.5 pg pg (27.9-34.1) MCHC 36.3 g/dL g/dL (32.4-36.7) RDW 14.1 % % (11.5-15.2) Plt Count 142 10^3/uL L 10^3/uL (150-400) MPV 9.2 fL fL (8.7-11.7) Neut % (Auto) 47.5 % % (39.3-74.2) Lymph % (Auto) 47.9 % H % (15.0-45.0) [place] % (Auto) 3.9 % L % (4.5-13.0) Eos % (Auto) 0.0 % L % (0.6-7.6) Baso % (Auto) 0.5 % % (0.3-1.7) Nucleat RBC Rel Count 0.0 % % (0.0-0.2) Absolute Neuts (auto) 2.89 10^3/uL 10^3/uL (1.70-6.50) Absolute Lymphs (auto) 2.92 10^3/uL 10^3/uL (1.00-3.00) Absolute Monos (auto) 0.24 10^3/uL L 10^3/uL (0.30-0.80) Absolute Eos (auto) 0.00 10^3/uL L 10^3/uL (0.03-0.40) Absolute Basos (auto) 0.03 10^3/uL 10^3/uL (0.02-0.10) Absolute Nucleated RBC 0.00 10^3/uL 10^3/uL (0-0.01) Immature Gran % 0.2 % % (0.0-1.1) Immature Gran # 0.01 10^3/uL 10^3/uL (0.00-0.10) Sodium 144 mEq/L mEq/L (135-145) Potassium 4.2 mEq/L mEq/L (3.5-5.2) Chloride 102 mEq/L mEq/L (97-110) Carbon Dioxide 18 mEq/l L mEq/l (22-31) Anion Gap 24 mEq/L H mEq/L (8-16) BUN 14 mg/dL mg/dL (7-23) Creatinine 0.7 mg/dL mg/dL (0.7-1.3) Estimated GFR > 60 Glucose 100 mg/dL mg/dL (70-100) Calcium 8.9 mg/dL mg/dL (8.5-10.4) Total Bilirubin 0.7 mg/dL mg/dL (0.1-1.4) Conjugated Bilirubin 0.5 mg/dL mg/dL (0.0-0.5) Unconjugated Bilirubin 0.2 mg/dL mg/dL (0.0-1.1) AST 219 IU/L H IU/L (17-59) ALT 150 IU/L H IU/L (21-72) Alkaline Phosphatase 92 IU/L IU/L (38-126) Total Protein 8.5 g/dL H g/dL (6.3-8.2) Albumin 5.0 g/dL g/dL (3.5-5.0) Lipase 156 IU/L IU/L (23-300) Ethyl Alcohol 379 mg/dL H mg/dL (0-10) Medications Given: Discontinued Medications Chlordiazepoxide (Librium 25 Mg Prepack#6) 1 btl TAKEHOME EDNOW ONE Stop: 08/02/17 17:59 Last Admin: 08/02/17 18:09 Dose: 1 btl Sodium Chloride (Ns) 1,000 mls @ 0 mls/hr IV ONCE ONE; Wide Open PRN Reason: Protocol Stop: 08/02/17 16:05 Last Admin: 08/02/17 16:50 Dose: 1,000 mls Departure - Departure Disposition: Home, Routine, Self-Care Clinical Impression: Alcohol intoxication Qualifiers: Complication of substance-induced condition: uncomplicated Qualified Code(s): F10.920 - Alcohol use, unspecified with intoxication, uncomplicated Condition: Good Instructions: Alcohol Intoxication (ED) Additional Instructions: 1. Take Librium as prescribed, 1 tablet every six hours as needed for alcohol withdrawal. 2. Proceed directly to the [facility] for assistance in alcohol recovery. 3. Return to the emergency department for fever, vomiting, confusion, headache, abdominal pain or other worsening of condition. 4. Follow up with your primary care provider. Referrals: Tom Scruggs DO [Primary Care Provider] - As per Instructions [facility] [place] Detox 24 Hours [Outside] - As per Instructions
[2017-08-02 16:13] LABS: PLATELET COUNT 142 10^3/uL (150-400)
[2017-08-02 16:51] VITALS: O2SAT 94
[2017-08-02] MEDS ORDERED: CHLORDIAZEPOXIDE 25MG PREPK#6 BTL TAKEHOME ONE (17:58)
[2017-08-02 18:13] VITALS: BP 151/103; PULSE 102; RESP 18
== END 2017-08-02 18:13 | disposition home or self-care (01) ==
DX: F10.920 Alcohol use, unspecified with intoxication, uncomplicated (principal); E86.9 Volume depletion, unspecified; F17.200 Nicotine dependence, unspecified, uncomplicated
CPT/HCPCS: G0480

== ENCOUNTER 2017-11-29 11:51 | Emergency (ER) | payer MEDICAID ==
--- NOTE | 2017-11-29 12:47 | EDPHY ---
General - History Smoking Status: Current every day smoker Time Seen by Provider: 11/29/17 12:16 Narrative: CHIEF COMPLAINT: Depression, suicidal ideation, "meds aren't working" HISTORY OF PRESENT ILLNESS: Patient presents with complaints of "my meds aren't working." He reports taking the Trileptal, Remerson and Ativan for the past several years. He says that they did work for while, but now they are no longer working. He has had difficulty following this task, he has felt mood swings and he has had insomnia. Over the past 24 hr he has felt suicidal. He says "I have a rope and a grappling hook. Dying sounds pretty good right now." He does express intent to harm himself. He denies any modifying factors otherwise. He was at his primary care physician office today, who had the patient evaluated by mental health professional who sent the patient our facility for medical clearance and further evaluation. He has secondary complaint of left knee pain that started yesterday. It is an acute on chronic pain that he injured while working on a roof yesterday. He says he twisted it and now "it's blowing up and painful." No fall or trauma. PSYCHIATRIC DIAGNOSES: Borderline personality, depression, anxiety M1/DETAINER: Detainer at 12:45 p.m. today REVIEW OF SYSTEMS: Ten systems reviewed and are negative unless otherwise noted in the HPI EXAMINATION General Appearance: Alert, no distress. Well-developed well-nourished. Head: normocephalic, atraumatic Eyes: Pupils equal and round, no conjunctival pallor or injection ENT, Mouth: Mucous membranes moist Neck: Normal inspection, supple, non-tender Respiratory: Lungs are clear to auscultation Cardiovascular: Regular rate and rhythm Gastrointestinal: Abdomen is soft and nontender Back: non-tender, no bony abnormalities Neurological: GCS 15. A&O, nonfocal, normal gait Skin: Warm and dry, no rash Extremities: Tenderness and mild edema to the left knee. There is no instability. Range of motion of the knees symmetric. Negative drawer test. Neurovascular intact distally. Psychiatric: Flat affect. Admits to suicidal ideation with plan of hanging himself. DIFFERENTIAL DIAGNOSES: Including but not limited to suicidal ideation, borderline personality, bipolar disorder, depression, insomnia MDM: 12:50 p.m. Increasing frustration with his medications for borderline personality anxiety with subsequent thoughts of self-harm. His plan is to hang himself with a rope. The patient was evaluated by [facility] without a detained or M1 hold. I placed him on a detained or and we will proceed with medical clearance and evaluation. I have also ordered x-ray of his knee is complaining of left knee pain. 1:45 p.m. Labs unremarkable. X-ray of the knee is unremarkable. Alcohol level is 158, higher than the level EPS will evaluate him for at this time. We will monitor him until they will evaluate him. 3:00 p.m. Patient resting comfortably and waiting evaluation. 4:00 p.m. Patient is ambulating but cooperative. Awaiting evaluation. 4:30 p.m. Patient currently be evaluated. He was asking for me to discuss his x-ray with him, but the water resource engineering specialist is at bedside. 5:30 p.m. At this time I discussed case with Dr. Cesar. He will assume care the patient at this time. Patient is pending psychiatric evaluation. Please see his note for further care and disposition. SUPERVISION: Patient was independently examined, but I discussed the case with my secondary supervising physician Dr. Cesar ([facility]) Medical Decision Makin:20 p.m. patient has been evaluated. He is placed on an M1 hold. They are looking for and ATU. Patient is slightly tremulous. He is given oral Ativan (Tiago Cesar) 1244: Patient has been accepted at [facility] for inpatient psychiatric hospitalization. [facility] set up. Appropriate transfer will be set up. (Darryl Ritter) - Diagnostics Imaging Results: Imaging Impressions Knee X-Ray 11/29/17 12:47 Impression: There is no acute osseous abnormality identified. If there is continuing clinical concern regarding the patient's "acute-on- chronic pain," MR imaging could be considered. - Objective Vital Signs: Initial Vital Signs Temperature (C) 36.8 C 11/29/17 11:56 Heart Rate 87 11/29/17 11:56 Respiratory Rate 17 11/29/17 11:56 Blood Pressure 128/86 H 11/29/17 11:56 O2 Sat (%) 93 11/29/17 11:56 O2 Delivery Mode Room Air Allergies/Adverse Reactions: pregabalin [From Lyrica] Allergy (Intermediate, Verified 11/29/17 11:54) Hives promethazine HCl [From Phenergan] Allergy (Mild, Verified 11/29/17 11:54) Flushing gabapentin Allergy (Verified 11/29/17 11:54) haloperidol [From Haldol] Allergy (Verified 11/29/17 11:54) morphine Allergy (Verified 11/29/17 11:54) quetiapine [From Seroquel] Allergy (Verified 11/29/17 11:54) trazodone Allergy (Verified 11/29/17 11:54) Home Medications: Medication Instructions Recorded OXcarbazepine [Trileptal 300mg (*)] 600 mg PO TID 04/24/16 Mirtazapine [Remeron] 15 mg PO HS 09/18/16 Fluticasone Nasal [Flonase Nasal 102 sprays NASAL DAILY 11/29/17 [place] (RX)] LORazepam [Ativan (*)] 1 mg PO TID PRN 11/29/17 Laboratory Results: Laboratory Results 11/29/17 12:47 11/29/17 12:47 11/29/17 11/29/17 11/29/17 13:10 12:47 12:47 WBC 6.00 10^3/uL 10^3/uL (3.80-9.50) RBC 4.54 10^6/uL 10^6/uL (4.40-6.38) Hgb 14.6 g/dL g/dL (13.7-17.5) Hct 41.3 % % (40.0-51.0) MCV 91.0 fL fL (81.5-99.8) MCH 32.2 pg pg (27.9-34.1) MCHC 35.4 g/dL g/dL (32.4-36.7) RDW 13.3 % % (11.5-15.2) Plt Count 206 10^3/uL 10^3/uL (150-400) MPV 9.6 fL fL (8.7-11.7) Neut % (Auto) 47.8 % % (39.3-74.2) Lymph % (Auto) 44.7 % % (15.0-45.0) [place] % (Auto) 6.0 % % (4.5-13.0) Eos % (Auto) 0.5 % L % (0.6-7.6) Baso % (Auto) 0.8 % % (0.3-1.7) Nucleat RBC Rel Count 0.0 % % (0.0-0.2) Absolute Neuts (auto) 2.87 10^3/uL 10^3/uL (1.70-6.50) Absolute Lymphs (auto) 2.68 10^3/uL 10^3/uL (1.00-3.00) Absolute Monos (auto) 0.36 10^3/uL 10^3/uL (0.30-0.80) Absolute Eos (auto) 0.03 10^3/uL 10^3/uL (0.03-0.40) Absolute Basos (auto) 0.05 10^3/uL 10^3/uL (0.02-0.10) Absolute Nucleated RBC 0.00 10^3/uL 10^3/uL (0-0.01) Immature Gran % 0.2 % % (0.0-1.1) Immature Gran # 0.01 10^3/uL 10^3/uL (0.00-0.10) Sodium 144 mEq/L mEq/L (135-145) Potassium 4.1 mEq/L mEq/L (3.3-5.0) Chloride 105 mEq/L mEq/L (97-110) Carbon Dioxide 24 mEq/l mEq/l (22-31) Anion Gap 15 mEq/L mEq/L (8-16) BUN 12 mg/dL mg/dL (7-23) Creatinine 0.8 mg/dL mg/dL (0.7-1.3) Estimated GFR > 60 Glucose 102 mg/dL H mg/dL (70-100) Calcium 8.7 mg/dL mg/dL (8.5-10.4) Salicylates < 1.0 mg/dL L mg/dL (2.0-20.0) Urine Opiates Screen NEGATIVE (NEGATIVE) Acetaminophen < 10 mcg/mL L mcg/mL (10-30) Urine Barbiturates NEGATIVE (NEGATIVE) Ur Phencyclidine Scrn NEGATIVE (NEGATIVE) Ur Amphetamine Screen NEGATIVE (NEGATIVE) U Benzodiazepines Scrn NEGATIVE (NEGATIVE) Urine Cocaine Screen NEGATIVE (NEGATIVE) U Marijuana (THC) Screen NON-NEGATIVE H (NEGATIVE) Ethyl Alcohol 158 mg/dL H mg/dL (0-10) Medications Given: Fluticasone Propionate (Flonase Nasal [place]) 2 sprays EACHNARE DAILY MIRA Stop: 05/29/18 08:59 Last Admin: 11/29/17 16:09 Dose: 2 sprays Oxcarbazepine (Trileptal) 600 mg PO TID MIRA Stop: 05/28/18 15:59 Last Admin: 11/29/17 22:10 Dose: 600 mg Discontinued Medications Sodium Chloride (Ns) 1,000 mls @ 0 mls/hr IV EDNOW ONE; Wide Open PRN Reason: Protocol Stop: 11/29/17 23:17 Last Admin: 11/30/17 00:12 Dose: 1,000 mls Ibuprofen (Motrin) 600 mg PO EDNOW ONE Stop: 11/29/17 17:18 Last Admin: 11/29/17 22:13 Dose: Not Given Lorazepam (Ativan) 1 mg PO EDNOW ONE Stop: 11/29/17 15:15 Last Admin: 11/29/17 15:17 Dose: 1 mg Lorazepam (Ativan) 1 mg PO EDNOW ONE Stop: 11/29/17 17:31 Last Admin: 11/29/17 17:31 Dose: 1 mg Lorazepam (Ativan) 1 mg PO EDNOW ONE Stop: 11/29/17 21:04 Last Admin: 11/29/17 21:10 Dose: 1 mg Lorazepam (Ativan Injection) 1 mg IVP EDNOW ONE Stop: 11/29/17 23:17 Last Admin: 11/30/17 00:13 Dose: 1 mg Mirtazapine (Remeron) 15 mg PO EDNOW ONE Stop: 11/29/17 21:01 Last Admin: 11/29/17 22:11 Dose: 15 mg Departure - Departure Clinical Impression: Suicidal ideation, Borderline personality disorder, Sprain of knee Condition: Good Referrals: Tom Scruggs DO [Primary Care Provider] - As per Instructions Rosanna Phillips MD [Medical Doctor] - As per Instructions
[2017-11-29 12:58] LABS: PLATELET COUNT 206 10^3/uL (150-400)
[2017-11-29] MEDS ORDERED: LORazepam 1 MG TAB ONE ×3 (15:12→21:00)
[2017-11-29] MEDS ORDERED: LORazepam 1 MG TAB PO ONE ×3 (15:14→21:03)
[2017-11-29] MEDS: OXcarbazepine 300 MG TAB PO SCH ×2 (15:26→22:10)
[2017-11-29] MEDS ORDERED: IBUPROFEN 600 MG TAB PO ONE (17:17)
[2017-11-29] MEDS ORDERED: MIRTAZAPINE 15 MG TAB PO ONE (21:00)
[2017-11-29] MEDS ORDERED: OXcarbazepine 300 MG TAB PO SCH (21:00)
[2017-11-29] MEDS ORDERED: LORazepam 2 MG/ML INJ IVP ONE (23:16)
[2017-11-29] MEDS ORDERED: NS 1,000 ML IV ONE (23:16)
[2017-11-30 00:59] VITALS: BP 123/90
[2017-11-30] MEDS ORDERED: FLUTICASONE NASAL 120 SPRAYS/16 GM MDI EACHNARE SCH (09:00)
== END 2017-11-30 01:10 ==
DX: S83.92XA Sprain of unspecified site of left knee, initial encounter (principal); R45.851 Suicidal ideations; F60.3 Borderline personality disorder; F17.200 Nicotine dependence, unspecified, uncomplicated; E86.9 Volume depletion, unspecified; X50.9XXA Other and unspecified overexertion or strenuous movements or postures, initial encounter; Y99.8 Other external cause status; Y93.89 Activity, other specified
CPT/HCPCS: 80305; 96374; G0480; J2060